=== PATIENT | male | born 2005 | race Caucasian/White ===

== ENCOUNTER 2023-08-22 09:43 | Emergency (ER) | payer BC, OTHER ==
[2023-08-22] MEDS: FAMOTIDINE 20 MG/2 ML VIAL IV STA (10:17)
[2023-08-22] MEDS: droPERidol 5 MG/2 ML VIAL IVP ONE (10:17)
[2023-08-22] MEDS: SODIUM CHLORIDE 0.9% 2,000 ML IV STA (10:20)
[2023-08-22 10:30] LABS: Basophils # (A) 0.1 k/uL (0-0.2); Basophils % (A) 0 %; Eosinophils # (A) 0.1 k/uL (0-0.7); Eosinophils % (A) 1 %; HCT 52.6 % (39.0-53.0); HGB 17.5 gm/dL (13.0-17.5); Lymphocytes # (A) 2.2 k/uL (1.0-4.8); Lymphocytes % (A) 16 %; MCH 31.3 pg (25.0-35.0); MCHC 33.3 g/dL (31.0-37.0); Mean Platelet Volume 7.3; Monocytes # (A) 0.7 k/uL (0-1.0); Monocytes % (A) 5 %; Neutrophils # (A) 11.1 k/uL (1.3-7.7); Neutrophils % (A) 77 %; Platelet Count 403 k/uL (150-450); RBC 5.59 m/uL (4.30-5.90); RDW 12.4 % (11.5-15.5); WBC 14.4 k/uL (4.0-11.0)
[2023-08-22 11:19] LABS: ALT 36 U/L (4-49); AST 38 U/L (17-59); African American GFR (CKD) >90 (>60 ml/min/1.73 sqM); Alkaline Phosphatase 98 U/L (38-126); Anion Gap 23 mmol/L; Blood Urea Nitrogen 18 mg/dL (9-20); Calcium 10.9 mg/dL (8.4-10.2); Carbon Dioxide 15 mmol/L (22-30); Chloride 103 mmol/L (98-107); Glucose 170 mg/dL (74-99); Lipase 67 U/L (23-300); Non-African American GFR(CKD) >90 (>60 ml/min/1.73 sqM); Sodium 141 mmol/L (137-145); Total Bilirubin 2.1 mg/dL (0.2-1.3); Total Protein 9.7 g/dL (6.3-8.2)
[2023-08-22 11:27] LABS: Potassium 3.8 mmol/L (3.5-5.1)
--- NOTE | 2023-08-22 12:27 | ED ---
Nausea/Vomiting/Diarrhea HPI - General Source: patient, family, RN notes reviewed Mode of arrival: wheelchair <Tristian Berry - Last Filed: 08/22/23 12:59> - General Source: RN notes reviewed, old records reviewed Mode of arrival: wheelchair Limitations: no limitations <Rian Louie - Last Filed: 08/23/23 08:43> - General Chief complaint: Nausea/Vomiting/Diarrhea Stated complaint: Vomiting Time Seen by Provider: 08/22/23 09:59 - Related Data Previous Rx's Medication Instructions Recorded Famotidine [Pepcid] 20 mg PO HS #30 tablet 05/24/19 Ondansetron Odt [Zofran Odt] 4 mg PO Q8HR PRN #10 tab 08/22/23 Allergies Allergy/AdvReac Type Severity Reaction Status Date / Time No Known Allergies Allergy Verified 08/22/23 10:00 Review of Systems ROS Other: All systems not noted in ROS Statement are negative. <Tristian Berry - Last Filed: 08/22/23 12:59> ROS Other: All systems not noted in ROS Statement are negative. <Rian Louie - Last Filed: 08/23/23 08:43> ROS Statement: Those systems with pertinent positive or pertinent negative responses have been documented in the HPI. Past Medical History Past Medical History: No Reported History History of Any Multi-Drug Resistant Organisms: None Reported Past Surgical History: No Surgical Hx Reported Past Psychological History: No Psychological Hx Reported Smoking Status: Current every day smoker Past Alcohol Use History: Daily Past Drug Use History: Marijuana <Tristian Berry - Last Filed: 08/22/23 12:59> General Exam General appearance: alert, in no apparent distress Head exam: Present: atraumatic, normocephalic, normal inspection Eye exam: Present: normal appearance, PERRL, EOMI. Absent: scleral icterus, conjunctival injection, periorbital swelling ENT exam: Present: normal exam, mucous membranes moist Neck exam: Present: normal inspection. Absent: tenderness, meningismus, lymphadenopathy Respiratory exam: Present: normal lung sounds bilaterally. Absent: respiratory distress, wheezes, rales, rhonchi, stridor Cardiovascular Exam: Present: regular rate, normal rhythm, normal heart sounds. Absent: systolic murmur, diastolic murmur, rubs, gallop, clicks GI/Abdominal exam: Present: soft, normal bowel sounds. Absent: distended, tenderness, guarding, rebound, rigid Extremities exam: Present: normal inspection, full ROM, normal capillary refill. Absent: tenderness, pedal edema, joint swelling, calf tenderness Back exam: Present: normal inspection Neurological exam: Present: alert, oriented X3, CN II-XII intact Psychiatric exam: Present: normal affect, normal mood Skin exam: Present: warm, dry, intact, normal color. Absent: rash <Rian Louie - Last Filed: 08/23/23 08:43> Course Vital Signs 08/22/23 08/22/23 08/22/23 09:57 10:27 12:21 Temperature 97.3 F L 98 F Pulse Rate 116 H 76 Respiratory 18 16 Rate Blood Pressure 117/79 115/80 O2 Sat by Pulse 99 100 Oximetry Medical Decision Making - Lab Data Result diagrams: 08/22/23 10:22 08/22/23 10:22 <Tristian Berry - Last Filed: 08/22/23 12:59> - Lab Data Result diagrams: 08/22/23 10:22 08/22/23 10:22 <Rian Louie - Last Filed: 08/23/23 08:43> - Medical Decision Making Was pt. sent in by a medical professional or institution ([facility], [employer]IC, urgent care, hospital, or [facility]...) When possible be specific @ -No Did you speak to anyone other than the patient for history (EMS, parent, family, police, friend...)? What history was obtained from this source @ -No Did you review nursing and triage notes (agree or disagree)? Why? @ -I reviewed and agree with nursing and triage notes Were old charts reviewed (outside hosp., previous admission, EMS record, old EKG, old radiological studies, urgent care reports/EKG's, [facility] records)? Report findings @ -No old charts were reviewed Differential Diagnosis (chest pain, altered mental status, abdominal pain women, abdominal pain men, vaginal bleeding, weakness, fever, dyspnea, syncope, headache, dizziness, GI bleed, back pain, seizure, CVA, palpatations, mental health, musculoskeletal)? @ -Differential Abdominal Pain Men: Appendicitis, cholecystitis, diverticulosis, ischemic bowel, pancreatitis, hepatitis, UTI, gastroenteritis, AAA, incarcerated hernia, bowel obstruction, constipation, inflammatory bowel, hepatitis, peptic ulcer disease, splenic infarction, perforated viscus, testicular torsion, this is not meant to be an all-inclusive list EKG interpreted by me (3pts min.). @ -None X-rays interpreted by me (1pt min.). @ -None done CT interpreted by me (1pt min.). @ -None done U/S interpreted by me (1pt. min.). @ -None done What testing was considered but not performed or refused? (CT, X-rays, U/S, labs)? Why? @ -None What meds were considered but not given or refused? Why? @ -None Did you discuss the management of the patient with other professionals (pro fessionals i.e. , PA, [employer]CH[employer]IC, lab, RT, psych nurse, social insurance administrator, database programmer analyst, teacher, admissions officer, case assistant)? Give summary @ -No Was smoking cessation discussed for >3mins.? @ -No Was critical care preformed (if so, how long)? @ -No Were there social determinants of health that impacted care today? How? (Homelessness, low income, unemployed, alcoholism, drug addiction, transportation, low edu. Level, literacy, decrease access to med. care, [facility], rehab)? @ -No Was there de-escalation of care discussed even if they declined (Discuss DNR or withdrawal of care, Hospice)? DNR status @ -No What co-morbidities impacted this encounter? (DM, HTN, Smoking, COPD, CAD, Cancer, CVA, ARF, Chemo, Hep., AIDS, mental health diagnosis, sleep apnea, morbid obesity)? @ -None Was patient admitted / discharged? Hospital course, mention meds given and route, prescriptions, significant lab abnormalities, going to OR and other pertinent info. @ -Discharge patient's laboratory studies shows mild dehydration, patient was given fluid bolus, antiemetics symptoms have already improved. Patient tolerating oral intake will be discharged in stable condition. Undiagnosed new problem with uncertain prognosis? @ -No Drug Therapy requiring intensive monitoring for toxicity (Heparin, Nitro, Insulin, Cardizem)? @ -No Were any procedures done? @ -No Diagnosis/symptom? @ -Nausea vomiting Acute, or Chronic, or Acute on Chronic? @ -Acute Uncomplicated (without systemic symptoms) or Complicated (systemic symptoms)? @ -Uncomplicated Side effects of treatment? @ -No Exacerbation, Progression, or Severe Exacerbation? @ -No Poses a threat to life or bodily function? How? (Chest pain, [place], [place], pneumonia, PE, COPD, DKA, ARF, appy, cholecystitis, CVA, Diverticulitis, Homicidal, Suicidal, threat to staff... and all critical care pts) @ -No (Tristian Berry) - Lab Data Lab Results 08/22/23 08/22/23 Range/Units 10:22 10:22 WBC 14.4 H (4.0-11.0) k/uL RBC 5.59 (4.30-5.90) m/uL Hgb 17.5 (13.0-17.5) gm/dL Hct 52.6 (39.0-53.0) % MCV 94.0 (80.0-100.0) fL MCH 31.3 (25.0-35.0) pg MCHC 33.3 (31.0-37.0) g/dL RDW 12.4 (11.5-15.5) % Plt Count 403 (150-450) k/uL MPV 7.3 Neutrophils % 77 % Lymphocytes % 16 % Monocytes % 5 % Eosinophils % 1 % Basophils % 0 % Neutrophils # 11.1 H (1.3-7.7) k/uL Lymphocytes # 2.2 (1.0-4.8) k/uL Monocytes # 0.7 (0-1.0) k/uL Eosinophils # 0.1 (0-0.7) k/uL Basophils # 0.1 (0-0.2) k/uL Sodium 141 (137-145) mmol/L Potassium 3.8 (3.5-5.1) mmol/L Chloride 103 (98-107) mmol/L Carbon Dioxide 15 L (22-30) mmol/L Anion Gap 23 mmol/L BUN 18 (9-20) mg/dL Creatinine 0.97 (0.66-1.25) mg/dL Est GFR (CKD-EPI)AfAm >90 (>60 ml/min/1.73 sqM) Est GFR (CKD-EPI)NonAf >90 (>60 ml/min/1.73 sqM) Glucose 170 H (74-99) mg/dL Calcium 10.9 H (8.4-10.2) mg/dL Total Bilirubin 2.1 H (0.2-1.3) mg/dL AST 38 (17-59) U/L ALT 36 (4-49) U/L Alkaline Phosphatase 98 (38-126) U/L Total Protein 9.7 H (6.3-8.2) g/dL Albumin 6.0 H (3.5-5.0) g/dL Lipase 67 (23-300) U/L Disposition Is patient prescribed a controlled substance at d/c from ED?: No Time of Disposition: 12:27 <Tristian Berry - Last Filed: 08/22/23 12:59> <Rian Louie - Last Filed: 08/23/23 08:43> Clinical Impression: Nausea & vomiting Disposition: HOME SELF-CARE Condition: Stable Instructions (If sedation given, give patient instructions): Acute Nausea and Vomiting (ED) Additional Instructions: Please return to the Emergency Department if symptoms worsen or any other concerns. Prescriptions: Ondansetron Odt [Zofran Odt] 4 mg PO Q8HR PRN #10 tab PRN Reason: Nausea Referrals: Kayleigh Watters MD [Primary Care Provider] - 1-2 days
[2023-08-22 12:53] VITALS: BP 115/80; PULSE 76; RESP 16; TEMP 98
== END 2023-08-22 12:36 | disposition home or self-care (01) ==
LOC: EC 09:43
DX: R11.2 Nausea with vomiting, unspecified (principal); F17.200 Nicotine dependence, unspecified, uncomplicated; F12.90 Cannabis use, unspecified, uncomplicated
CPT/HCPCS: 36415; 80053; 83690; 85025; 99284; 96374; 96375; 96361 ×2; J3490; J1790

== ENCOUNTER 2023-12-16 01:57 | Inpatient (IN) | payer BC ==
--- NOTE | 2023-12-16 02:40 | ED ---
Psych HPI - General Source: police Mode of arrival: ambulatory - History of Present Illness MD Complaint: other -: hour(s) Associated Psychiatric Symptoms: other <ChuyBerhane - Last Filed: 12/16/23 02:37> <Rian Lo - Last Filed: 12/16/23 12:09> - General Chief Complaint: Psychiatric Symptoms Stated Complaint: Petition Time Seen by Provider: 12/16/23 02:20 - History of Present Illness Initial Comments: Patient is a 18-year-old man who presents to the hospital after being petitioned by [employer] department. The patient states that he found that his girlfriend was cheating on him so he went for a walk to decompress. The patient denies feeling suicidal. Patient does admit to having some drinks tonight. (Berhane Vera) - Related Data Previous Rx's Medication Instructions Recorded Famotidine [Pepcid] 20 mg PO HS #30 tablet 05/24/19 Ondansetron Odt [Zofran Odt] 4 mg PO Q8HR PRN #10 tab 08/22/23 Allergies Allergy/AdvReac Type Severity Reaction Status Date / Time No Known Allergies Allergy Verified 12/16/23 02:03 Review of Systems ROS Other: All systems not noted in ROS Statement are negative. Constitutional: Denies: fever Respiratory: Denies: cough, dyspnea Cardiovascular: Denies: chest pain, palpitations Gastrointestinal: Denies: abdominal pain, nausea, vomiting Neurological: Denies: headache, weakness <ChuyBerhane - Last Filed: 12/16/23 02:37> ROS Other: All systems not noted in ROS Statement are negative. <Rian Lo - Last Filed: 12/16/23 12:09> ROS Statement: Those systems with pertinent positive or pertinent negative responses have been documented in the HPI. Past Medical History Past Medical History: No Reported History History of Any Multi-Drug Resistant Organisms: None Reported Past Surgical History: No Surgical Hx Reported Past Psychological History: No Psychological Hx Reported Smoking Status: Current every day smoker, Vaper Past Alcohol Use History: Daily Past Drug Use History: Marijuana <Berhane Vera - Last Filed: 12/16/23 02:37> General Exam Limitations: no limitations General appearance: alert, in no apparent distress, appears intoxicated Head exam: Present: atraumatic, normocephalic Eye exam: Present: normal appearance Neck exam: Present: normal inspection Respiratory exam: Present: normal lung sounds bilaterally. Absent: respiratory distress, wheezes, rales, rhonchi, stridor Cardiovascular Exam: Present: regular rate, normal rhythm, normal heart sounds. Absent: systolic murmur, diastolic murmur, rubs, gallop GI/Abdominal exam: Present: soft. Absent: distended, tenderness, guarding, rebound, rigid, mass Extremities exam: Present: normal inspection, normal capillary refill Back exam: Present: normal inspection. Absent: CVA tenderness (R), CVA tenderness (L) Neurological exam: Present: alert Psychiatric exam: Present: anxious. Absent: agitated, flat affect, homicidal ideation, suicidal ideation Skin exam: Present: warm, dry, intact, normal color. Absent: rash <Berhane Vera - Last Filed: 12/16/23 02:37> Course Vital Signs 12/16/23 01:59 Temperature 97.7 F Pulse Rate 111 H Respiratory 20 Rate Blood Pressure 125/88 O2 Sat by Pulse 99 Oximetry Medical Decision Making <Rian Lo - Last Filed: 12/16/23 12:09> - Medical Decision Making Was patient admitted / discharged? Hospital course, mention meds given and route, prescriptions, significant lab abnormalities, going to OR and other pertinent info. @ -Patient was seen initially by Dr. Andrews and signed out to me at 7 AM. EPS evaluated the patient and Dr. River was contacted and they determined the patient needed to stay and patient was in agreement with that and signed himself and Undiagnosed new problem with uncertain prognosis? @ -Yes patient is diagnosed with suicidal ideations Drug Therapy requiring intensive monitoring for toxicity (Heparin, Nitro, Insulin, Cardizem)? @ -No Were any procedures done? @ -No Diagnosis/symptom? @ -Suicidal ideations Acute, or Chronic, or Acute on Chronic? @ -Acute Uncomplicated (without systemic symptoms) or Complicated (systemic symptoms)? @ -Complicated Side effects of treatment? @ -No Exacerbation, Progression, or Severe Exacerbation? @ -No Poses a threat to life or bodily function? How? (Chest pain, [place], [place], pneumonia, PE, COPD, DKA, ARF, appy, cholecystitis, CVA, Diverticulitis, Homicidal, Suicidal, threat to staff... and all critical care pts) @ -Yes this could lead to an attempt and (Rian Lo) - Lab Data Lab Results 12/16/23 Range/Units 02:11 Urine Opiates Screen Not Detected (NotDetected) Ur Oxycodone Screen Not Detected (NotDetected) Urine Methadone Screen Not Detected (NotDetected) Ur Barbiturates Screen Not Detected (NotDetected) U Tricyclic Antidepress Not Detected (NotDetected) Ur Phencyclidine Scrn Not Detected (NotDetected) Ur Amphetamines Screen Not Detected (NotDetected) U Methamphetamines Scrn Not Detected (NotDetected) U Benzodiazepines Scrn Not Detected (NotDetected) Urine Cocaine Screen Not Detected (NotDetected) U Marijuana (THC) Screen Detected H (NotDetected) Disposition <Berhane Vera - Last Filed: 12/16/23 02:37> Time of Disposition: 12:09 <Rian Lo - Last Filed: 12/16/23 12:09> Clinical Impression: Suicidal ideation Disposition: ADMITTED IP TO THIS HOSP Referrals: Kayleigh Watters MD [Primary Care Provider] - 1-2 days
[2023-12-16] MEDS ORDERED: ZIPRASIDONE 20 MG VIAL IM PRN (03:59)
[2023-12-16] MEDS: NICOTINE 14MG/24HR PATCH TRANSDERM STA (09:58)
[2023-12-16 10:25] LABS: Amphetamine Screen,Urine Not Detected (NotDetected); Barbiturate Screen,Urine Not Detected (NotDetected); Benzodiazepines Screen,Urine Not Detected (NotDetected); Cocaine Screen,Urine Not Detected (NotDetected); Methadone Screen, Urine Not Detected (NotDetected); Opiate Screen,Urine Not Detected (NotDetected); Oxycodone Screen, Urine Not Detected (NotDetected); Phencyclidine Screen,Urine Not Detected (NotDetected); Tricyclic Antidepressant,Urine Not Detected (NotDetected); Urn Cannabinoid Scrn Detected (NotDetected)
[2023-12-16] MEDS ORDERED: MAGNESIUM HYDROXIDE 2,400 MG/30 ML CUP PO PRN (15:58)
[2023-12-16] MEDS ORDERED: haloperidoL 5 MG TAB PO PRN (15:58)
[2023-12-16] MEDS ORDERED: LORazepam 1 MG TAB PO PRN (15:58)
[2023-12-16] MEDS ORDERED: MAG HYDROX/AL HYDROX/SIMETH 355 ML BOTTLE PO PRN (15:58)
[2023-12-16] MEDS ORDERED: IBUPROFEN 600 MG TAB PO PRN (15:58)
[2023-12-16] MEDS ORDERED: ACETAMINOPHEN TAB 325 MG TAB PO PRN (15:58)
[2023-12-16] MEDS ORDERED: HALOPERIDOL LACTATE 5 MG/ML 1 ML VIAL IM PRN (15:58)
[2023-12-16] MEDS ORDERED: LORazepam 2 MG/ML INJ IM PRN (15:58)
--- NOTE | 2023-12-17 01:44 | P.CONS ---
History of Present Illness - Reason for Consult Consult date: 12/17/23 - History of Present Illness The patient is a 18-year-old male who was brought into the emergency room under police custody for suicidal ideation. The patient was admitted to mental health unit where he was seen and evaluated. The patient had reported to the ED staff that he had recently found out that his girlfriend was cheating on him and that he may have expressed some suicidal ideation. He reported feeling okay at the time of interview and denied any further depressive thoughts. Denied any physical complaints at the time of interview. Denied experiencing chest discomfort, shortness of breath, fever, chills, cough, nausea, vomiting, abdominal pain, diarrhea. Reports recreational marijuana use. Reports drinking 10 beers at a time 3-4 times a week. Denies tobacco use. Review of systems: Pertinent positives and negatives as discussed in HPI, a complete review of systems was performed and all other systems are negative. Physical examination: General: non toxic, no distress, appears at stated age, normal weight Derm: no unusual rashes/lesions, no unusual ecchymoses, warm, dry Head: atraumatic, normocephalic, symmetric Eyes: EOMI, no lid lag, anicteric sclera ENT: Nose and ears atraumatic, no thrush, no pharyngeal erythema Neck: trachea midline, supple Mouth: no lip lesion, mucus membranes moist Cardiovascular: S1S2 reg, no murmur, no edema Lungs: CTA bilateral, no rhonchi, no rales , no accessory muscle use Abdominal: soft, nontender to palpation, no guarding Ext: no gross muscle atrophy, no contractures, Neuro: No gross focal neuro deficits noted Psych: Alert, oriented, appropriate affect Assessment: Marijuana abuse Depression and suicidal ideation Imaging: None performed Data Review: Urine toxicology positive for marijuana with coronavirus PCR negative Plan: Advised on the importance of cessation Defer management of depression and suicidal ideation to the primary psychiatry service Thank you for allowing us to participate in the care of this patient. We will follow peripherally. Do not hesitate to contact us with questions. Someone can be reached from the [facility] hospitalist group at all hours of the day at [phone]. Past Medical History Past Medical History: No Reported History History of Any Multi-Drug Resistant Organisms: None Reported Past Surgical History: No Surgical Hx Reported Past Psychological History: No Psychological Hx Reported Smoking Status: Current every day smoker, Vaper Past Alcohol Use History: Occasional Additional Past Alcohol Use History / Comment(s): Patient reports drink on occasion, approx 4-6 times per month. Past Drug Use History: Marijuana Additional Drug Use History / Comment(s): Patient reports daily marijuana use including "All types". Medications and Allergies Home Medications Medication Instructions Recorded Confirmed Type No Known Home Medications 12/16/23 12/16/23 History Allergies Allergy/AdvReac Type Severity Reaction Status Date / Time No Known Allergies Allergy Verified 12/16/23 15:14 Physical Exam Vitals: Vital Signs Temp Pulse Pulse Resp BP BP Pulse Ox 12/16/23 16:20 98.3 F 82 18 132/97 96 12/16/23 13:13 98.1 F 80 16 132/80 98 12/16/23 01:59 97.7 F 111 H 20 125/88 99 Intake and Output 12/16/23 12/16/23 12/17/23 14:59 22:59 06:59 Other: Weight 78.335 kg Results Labs: Abnormal Lab Results - Last 24 Hours (Table) 12/16/23 Range/Units 02:11 U Marijuana (THC) Screen Detected H (NotDetected)
[2023-12-17] MEDS ORDERED: traZODone HCL 50 MG TAB PO PRN (09:57)
[2023-12-17 12:31] LABS: Basophils % (A) 1 %; Eosinophils # (A) 0.1 k/uL (0-0.7); Eosinophils % (A) 1 %; HCT 47.8 % (39.0-53.0); HGB 16.1 gm/dL (13.0-17.5); Lymphocytes # (A) 1.3 k/uL (1.0-4.8); Lymphocytes % (A) 16 %; MCH 31.7 pg (25.0-35.0); MCHC 33.6 g/dL (31.0-37.0); MCV 94.3 fL (80.0-100.0); Mean Platelet Volume 6.9; Monocytes # (A) 0.5 k/uL (0-1.0); Monocytes % (A) 5 %; Neutrophils # (A) 6.6 k/uL (1.3-7.7); Neutrophils % (A) 77 %; Platelet Count 374 k/uL (150-450); RBC 5.07 m/uL (4.30-5.90); RDW 12.6 % (11.5-15.5); WBC 8.6 k/uL (4.0-11.0)
[2023-12-17 13:00] LABS: ALT 38 U/L (4-49); AST 43 U/L (17-59); African American GFR (CKD) >90 (>60 ml/min/1.73 sqM); Albumin 5.2 g/dL (3.5-5.0); Alkaline Phosphatase 72 U/L (38-126); Anion Gap 9 mmol/L; Blood Urea Nitrogen 11 mg/dL (9-20); Calcium 10.1 mg/dL (8.4-10.2); Carbon Dioxide 26 mmol/L (22-30); Chloride 101 mmol/L (98-107); Glucose 95 mg/dL (74-99); Non-African American GFR(CKD) >90 (>60 ml/min/1.73 sqM); Potassium 4.2 mmol/L (3.5-5.1); Sodium 136 mmol/L (137-145); Total Bilirubin 1.9 mg/dL (0.2-1.3); Total Protein 8.1 g/dL (6.3-8.2)
--- NOTE | 2023-12-17 14:34 | P.HP ---
Psychiatric H&P - . History & Physical: Allergies Allergy/AdvReac Type Severity Reaction Status Date / Time No Known Allergies Allergy Verified 12/16/23 15:14 Vital Signs Temp 97.8 F 12/17/23 05:23 Pulse 92 12/17/23 05:23 Resp 18 12/17/23 05:23 BP 118/84 12/17/23 05:23 Pulse Ox 95 12/17/23 05:23 FiO2 Intake & Output 12/16/23 12/17/23 12/17/23 18:59 06:59 18:59 Weight 78.335 kg Laboratory Last Values WBC 8.6 k/uL (4.0-11.0) 12/17/23 11:57 RBC 5.07 m/uL (4.30-5.90) 12/17/23 11:57 Hgb 16.1 gm/dL (13.0-17.5) 12/17/23 11:57 Hct 47.8 % (39.0-53.0) 12/17/23 11:57 MCV 94.3 fL (80.0-100.0) 12/17/23 11:57 MCH 31.7 pg (25.0-35.0) 12/17/23 11:57 MCHC 33.6 g/dL (31.0-37.0) 12/17/23 11:57 RDW 12.6 % (11.5-15.5) 12/17/23 11:57 Plt Count 374 k/uL (150-450) 12/17/23 11:57 MPV 6.9 12/17/23 11:57 Neutrophils % 77 % 12/17/23 11:57 Lymphocytes % 16 % 12/17/23 11:57 Monocytes % 5 % 12/17/23 11:57 Eosinophils % 1 % 12/17/23 11:57 Basophils % 1 % 12/17/23 11:57 Neutrophils # 6.6 k/uL (1.3-7.7) 12/17/23 11:57 Lymphocytes # 1.3 k/uL (1.0-4.8) 12/17/23 11:57 Monocytes # 0.5 k/uL (0-1.0) 12/17/23 11:57 Eosinophils # 0.1 k/uL (0-0.7) 12/17/23 11:57 Basophils # 0.0 k/uL (0-0.2) 12/17/23 11:57 Sodium 136 mmol/L (137-145) L 12/17/23 11:57 Potassium 4.2 mmol/L (3.5-5.1) 12/17/23 11:57 Chloride 101 mmol/L (98-107) 12/17/23 11:57 Carbon Dioxide 26 mmol/L (22-30) 12/17/23 11:57 Anion Gap 9 mmol/L 12/17/23 11:57 BUN 11 mg/dL (9-20) 12/17/23 11:57 Creatinine 0.85 mg/dL (0.66-1.25) 12/17/23 11:57 Est GFR (CKD-EPI)AfAm >90 (>60 ml/min/1.73 sqM) 12/17/23 11:57 Est GFR (CKD-EPI)NonAf >90 (>60 ml/min/1.73 sqM) 12/17/23 11:57 Glucose 95 mg/dL (74-99) 12/17/23 11:57 Calcium 10.1 mg/dL (8.4-10.2) 12/17/23 11:57 Total Bilirubin 1.9 mg/dL (0.2-1.3) H 12/17/23 11:57 AST 43 U/L (17-59) 12/17/23 11:57 ALT 38 U/L (4-49) 12/17/23 11:57 Alkaline Phosphatase 72 U/L (38-126) 12/17/23 11:57 Total Protein 8.1 g/dL (6.3-8.2) 12/17/23 11:57 Albumin 5.2 g/dL (3.5-5.0) H 12/17/23 11:57 TSH 1.090 mIU/L (0.465-4.680) 12/17/23 11:57 Urine Opiates Screen Not Detected (NotDetected) 12/16/23 02:11 Ur Oxycodone Screen Not Detected (NotDetected) 12/16/23 02:11 Urine Methadone Screen Not Detected (NotDetected) 12/16/23 02:11 Ur Barbiturates Screen Not Detected (NotDetected) 12/16/23 02:11 U Tricyclic Antidepress Not Detected (NotDetected) 12/16/23 02:11 Ur Phencyclidine Scrn Not Detected (NotDetected) 12/16/23 02:11 Ur Amphetamines Screen Not Detected (NotDetected) 12/16/23 02:11 U Methamphetamines Scrn Not Detected (NotDetected) 12/16/23 02:11 U Benzodiazepines Scrn Not Detected (NotDetected) 12/16/23 02:11 Urine Cocaine Screen Not Detected (NotDetected) 12/16/23 02:11 U Marijuana (THC) Screen Detected (NotDetected) H 12/16/23 02:11 SARS-CoV-2 (PCR) Not Detected (Not Detectd) 12/16/23 13:10 12/17/23 14:32 Psychiatric Evaluation Identifying Data: Mr. Camargo is a 18 years old, single, white male, who lives in [place], [place] in an apartment by himself. Chief Complaint: I am upset being here. History of Psychiatric Illness- The patient noted that he was upset with his girlfriend because she cheated on him. After that he went for a walk. When he came back, he was picked up by the police. The police petition stated that he was suicidal after breaking-up with her girlfriend. The girlfriend reported that he was in his room holding knife threatening to cut himself. The patient stated that his girlfriend called the police after he quit talking to her and went for a walk. He does not know why the police was called. He denied making any statements about killing himself. The patient noted that he was under stress for a month due to interpersonal relationship issues with the girlfriend. He denied any other stressors. The patient noted that he was distressed with the issue but not depressed. He was angry, upset and worried about the situation but denied depressive symptomatology. He vehemently denied any suicidal or homicidal thoughts. Past Psychiatric History: The patient denied any h/o past psychiatric out-pt or in-patient treatment. He has never taken any psychiatric from his PCP or any other physician. Past Medication History: None, as per patient. Leading questions: The patient denied Depression and Anxiety. Denied SI or HI. Denied symptoms consistent with psychosis Drugs and alcohol history: The patient drinks 3-4 beers per day. He smokes Marijuana everyday once a day. Tobacco use: Vapes. Past Medical history: None. Family History of Psychiatric Disorder: The patient denied. He denied any h/o suicide or homicide in the family. Social History and Family History: The patient was born and raised in [place], [place]. He grew-up with one sibling. He finished [employer]. His longest job [email or web address] for 4 years. OTC: None. Allergies: None, as per patient. Objective: MSE: Alert and attentive. Orientation times three Dressed and Groomed: Appropriately. Pleasant and cooperative. Psychomotor Activity: Normal. Speech: Normal in tone, quality, and quantity. Mood: Angry and upset. Affect: irritable and frustrated. SI or HI: None. Perceptual disturbance: None. Thought Content: No paranoia or other delusional thinking noted. Thought Process: Normal. Cognition: Intact Judgment and Insight: Fair AIMS: Normal Labs: Available labs reviewed. Diagnosis: Adjustment disorder with emotional disturbance, R/O Major Depressive Disorder, NOS, Alcohol and Marijuana Abuse. Plan and Recommendations: Continue current Medications. Monitor MS and side effects of medications and adjust medications accordingly. Provide supportive psychotherapy and psychoeducation. The patient provided psychoeducation. Te patient provided with substance abuse counselling and advised to attend AA/NA Smoke cessation therapy. The patient to attend [facility]. CBC with Diff, CMP, TSH, Lipid Profile, HbA1c, Medication Consent with explanation of risk/benefits and side effects: Explained and obtained.
[2023-12-17 17:13] LABS: LDL Cholesterol,Calculated 93.2 mg/dL (0.0-131.0); VLDL Calculation 13.58 mg/dL (5.00-40.00)
--- NOTE | 2023-12-18 14:35 | P.PN ---
Subjective Progress Note Date: 12/18/23 Principal diagnosis: adjustment disorder with depression reason for hospitalization:The patient noted that he was upset with his girlfriend because she cheated on him. After that he went for a walk. When he came back, he was picked up by the police. The police petition stated that he was suicidal after breaking-up with her girlfriend. The girlfriend reported that he was in his room holding knife threatening to cut himself. The patient stated that his girlfriend called the police after he quit talking to her and went for a walk. He does not know why the police was called. He denied making any statements about killing himself. The patient noted that he was under stress for a month due to interpersonal relationship issues with the girlfriend. He denied any other stressors. The patient noted that he was distressed with the issue but not depressed. He was an gry, upset and worried about the situation but denied depressive symptomatology. He vehemently denied any suicidal or homicidal thoughts. Past Psychiatric History: The patient denied any h/o past psychiatric out-pt or in-patient treatment. He has never taken any psychiatric from his PCP or any other physician. Subjective the patient says that it is been good for him to be reflective and somewhat bored. He's been thinking as to what his goals are short-term he says a progress staffed alcohol and substances and long-term I want to do something that is more interesting and beneficial to mankind. He currently has a good job that pays well and treats him well was not what he wants to do forever. He says he was able to sleep last night appetite is good he been talking of the people on the unit reaching out to friends and family. Denies any psychotic symptoms or any history of manic episodes. Assessment he seems to be calming down without the use of medications. Plan note change in medicine at this time I strongly urged him to put together what he is learned as to what was going on that got him in here what he is already doing to try to pull his life together and was going to take to accomplish his goals in the future and present to the team on Wednesday Objective - Vital Signs Vital signs: Vital Signs Temp 97.6 F 12/18/23 05:58 Pulse 78 08/03/24 05:58 Resp 17 12/18/23 05:58 BP 109/45 12/18/23 05:58 Pulse Ox 99 12/18/23 05:58 FiO2 - Labs CBC & Chem 7: 12/17/23 11:57 12/17/23 11:57
[2023-12-18 18:40] LABS: Appearance,Urine Clear (Clear); Bilirubin,Urine Negative (Negative); Blood,Urine Negative (Negative); Color,Urine Colorless; Glucose,Urine (UA) Negative (Negative); Ketones,Urine Negative (Negative); Leukocyte Esterase,Urine Negative (Negative); Nitrite,Urine Negative (Negative); PH, Urine 6.5 (5.0-8.0); Protein,Urine Negative (Negative); Specific Gravity,Urine 1.002 (1.001-1.035); Urobilinogen,Urine <2.0 mg/dL (<2.0)
--- NOTE | 2023-12-19 07:54 | P.PN ---
Subjective Progress Note Date: 12/19/23 Principal diagnosis: adjustment disorder with depression Subjective the patient says that it has been good for him to be reflective and somewhat bored. Yesterday presented with Tay to need to look at his recent past and see if he understands what got him here and to grab ahold of the present to go to groups participate and uses time to plan and then come up with a plan to continue to do well. He says that he remembered the 3 steps and hasn't written out in his head just couldn't get a paper and pen. He also says that he was taking a lot of positives for granted and he is going to reach out to them Back in to support some positives that he was ignoring.. Objective alert good sense of humor good eye contact and good hygiene gait and station are normal no psychotic features affect shows full range. Denies any suicidal or homicidal thoughts says he slept well. Assessment he seems to be calming down without the use of medications. Plan: No need to add medications at this time Objective - Vital Signs Vital signs: Vital Signs Temp 97.6 F 12/18/23 05:58 Pulse 78 12/18/23 05:58 Resp 17 12/18/23 05:58 BP 109/45 12/18/23 05:58 Pulse Ox 99 12/18/23 05:58 FiO2 - Labs CBC & Chem 7: 12/17/23 11:57 12/17/23 11:57
[2023-12-20 07:00] VITALS: BP 128/89; PULSE 85; RESP 16; TEMP 98
== END 2023-12-21 12:41 | disposition home or self-care (01) | DRG 881 ==
LOC: EC 01:57 → 3MHU 15:48
PROVIDERS: ADMIT Psychiatry & Neurology Psychiatry; ATTEND Psychiatry & Neurology Psychiatry
DX: F43.21 Adjustment disorder with depressed mood (principal); R45.851 Suicidal ideations; F12.10 Cannabis abuse, uncomplicated; F17.290 Nicotine dependence, other tobacco product, uncomplicated; F17.200 Nicotine dependence, unspecified, uncomplicated; Z11.52 Encounter for screening for COVID-19; Z28.21 Immunization not carried out because of patient refusal; Z28.310 Unvaccinated for COVID-19
CPT/HCPCS: 80053; 80061; 80306; 81003; 82075; 83036; 84443; 85025; 87635; 99285